=== PATIENT | male | born 1960 | race Two or more races ===

== ENCOUNTER 2024-01-28 17:17 | Emergency (ER) | payer BC, MEDICAID ==
[~2024-01-28] VITALS: Ht 172.7 cm; Wt 82.0 kg
[2024-01-28 17:20] VITALS: PULSE 80; RESP 16; O2SAT 100; O2SAT 90
[2024-01-28 17:52] LABS: BASOPHILS % 0.7 % (0.0-2.0); DIFFERENTIAL COMMENT 0; EOSINOPHILS % 3.2 % (0.0-5.0); LYMPHOCYTES % 47.9 % (20.0-50.0); MEAN CORPUSCULAR HEMOGLOBIN 31.8 pg (28.0-32.0); MEAN CORPUSCULAR HGB CONC 31.6 g/dL (31.0-37.0); MEAN CORPUSCULAR VOLUME 100.8 fL (80.0-94.0); MEAN PLATELET VOLUME 8.9 fl (7.4-10.4); MONOCYTES % 6.8 % (2.0-8.0); NEUTROPHILS % 41.4 % (40.0-76.0); PLATELET 117 x1000/uL (130-400); RED BLOOD CELL COUNT 5.66 mill/uL (4.7-6.1); WHITE BLOOD COUNT 5.3 x1000/uL (4.5-11.0)
[2024-01-28] MEDS: DOPAMINE 400MG/250ML PREMIX 250 ML IV PRN (18:03)
[2024-01-28] MEDS: INSULIN REGULAR (HUMULIN R) 1000UNITS/10ML VIAL IV ONE (18:03)
[2024-01-28 18:05] LABS: CHLORIDE 102 mEq/L (98-107); SODIUM 140 mEq/L (136-145)
[2024-01-28 18:06] LABS: CALCIUM 11.7 mg/dL (8.7-10.4); CARBON DIOXIDE 23 mEq/L (21-32)
[2024-01-28 18:11] LABS: GLUCOSE 333 mg/dL (70-105); UREA NITROGEN BLOOD 26 mg/dL (9-23)
[2024-01-28 18:13] LABS: TROPONIN I HIGH SENSITIVITY 154 ng/L (3.0-53)
[2024-01-28 18:16] VITALS: BP 84/39; PULSE 60; RESP 16; TEMP 36.94740; O2SAT 100
[2024-01-28] MEDS ORDERED: PHENYLEPHRINE 100 MG in DEXT 5% WATER 240 ML IV STA (18:19)
[2024-01-28] MEDS ORDERED: PHENYLEPHRINE 100 MG in DEXT 5% WATER 240 ML IV NR (18:30)
== END 2024-01-28 18:32 ==
LOC: ER 17:17 → CANBEDREQ 20:08
DX: I46.9 Cardiac arrest, cause unspecified (principal); I49.9 Cardiac arrhythmia, unspecified; Z98.890 Other specified postprocedural states
CPT/HCPCS: 99291; 31500; 96365; 71045; 96375; 80048; 82962; 83880; 85025; 87040; 84484; 36415; 36680; 99292; 93005; J7060; J1265; J1815; 94002; 99285